=== PATIENT | female | born 1975 | race Caucasian/White ===

== ENCOUNTER 2023-11-17 12:36 | Emergency (ER) | payer OTHER, SELFPAY ==
[2023-11-17 12:42] VITALS: BP 165/91
[2023-11-17 14:08] LABS: Hematocrit 36.4 % (37.0-47.0); Hemoglobin 11.8 g/dL (12.0-16.0); Mean Corp Hgb Conc. 32.4 g/dL (33.0-37.0); Mean Corpuscular Hgb 26.8 pg (27.0-31.0); Mean Corpuscular Volume 82.7 fL (81.0-99.0); Mean Platelet Volume 9.7 fL (7.4-10.4); Platelet Count 365 10^3/uL (130-400); Red Cell Dist. Width 13.5 % (11.5-14.5); White Blood Cell Count 9.1 10^3/uL (4.8-10.8)
[2023-11-17 14:19] LABS: HCG, Serum Qualitative Screen Negative
[2023-11-17 14:23] LABS: Blood Urea Nitrogen 10 mg/dl (7-17); Calcium 9.1 mg/dl (8.4-10.2); Carbon Dioxide 26 mmol/L (22-30); Chloride 106 mmol/L (98-107); Glucose 125 mg/dl (70-99); Potassium 4.1 mmol/L (3.5-5.1); Sodium 137 mmol/L (135-145); eGFR > 60.00
--- NOTE | 2023-11-17 15:10 | ED.GENMED ---
History of Present Illness
General
Chief Complaint: Vaginal Bleeding
Time Seen by Provider: 11/17/23 13:22
Travel History
Have you had any contact with someone who has COVID-19?: No
Do you have any symptoms of coronavirus? Fever > 100 degrees, chills, cough, shortness of breath, sore throat, loss of taste or smell, muscle aches, or headache?: No
History of Present Illness
History of Present Illness:
48-year-old female with history of hypertension presents to the emergency department for evaluation of heavy vaginal bleeding for the past 10 days. She states for more than 1 year she has had heavy menstrual periods and took intermittent cycles of
norethindrone at the discretion of her SNOW PLOW OPERATOR to limit bleeding. She states she was advised to discontinue this recently by her SNOW PLOW OPERATOR but she is not certain why. Over the past 10 days has been having intermittent heavy bleeding, has changed her pad as
often as 4 times hourly as little as once a day over the past 10 days. Denies any abdominal pain, pelvic pain, chest pain, or shortness of breath. She does not take any anticoagulants or antiplatelets
Past History
Past History
ED Past Medical History: Psychiatric
ED Past Surgical History: Cholecystectomy and Gynecological (Tubal ligation)
Review of Systems
Review of Systems
Allergies reviewed?: Yes
All Other Systems: ROS reviewed and negative except as documented in HPI and ROS
Phy Exam
Physical Exam
Physical Exam:
GEN: Well appearing, NAD, WDWN
HEENT: Oral mucosa moist, no scleral icterus
Cardiac: Regular rate
Lung: No respiratory distress, no tachypnea
Abdomen: Soft, nontender
MSK: No gross deformity or injuries
Skin: Good color, no pallor or jaundice, no rashes
Neuro: AO x3, moves all extremities freely
Psych: Calm, cooperative
Course
Orders/Labs/Results
Orders:
Orders
11/17/23 13:43
Test Result ONCE
11/17/23 14:01
Basic Metabolic Panel Urgent
Complete Blood Count/No Diff Urgent
HCG, Serum Qualitative Screen Urgent
Abnormal Lab Results
11/17/23
14:01
Hgb 11.8 L g/dL
(12.0-16.0)
Hct 36.4 L %
(37.0-47.0)
MCH 26.8 L pg
(27.0-31.0)
MCHC 32.4 L g/dL
(33.0-37.0)
Glucose 125 H mg/dl
(70-99)
11/17/23 14:01
11/17/23 14:01
Vital Signs
Initial and Last Documented VS:
Initial Vital Signs
Temp Pulse Resp BP Pulse Ox
98.1 F 89 20 165/91 99
11/17/23 12:42 11/17/23 12:42 11/17/23 12:42 11/17/23 12:42 11/17/23 12:42
Last Documented Vital Signs
Temp Pulse Resp BP Pulse Ox
98.1 F 83 18 136/56 99
11/17/23 12:42 11/17/23 15:30 11/17/23 15:30 11/17/23 15:30 11/17/23 15:30
MDM/Problems Addressed
MDM/Problems Addressed:
Patient's labs are reassuring. Given that this been a chronic ongoing issue for at least 1 year I do not see any indication for imaging at this juncture. Her breakthrough bleeding is likely in the basis of discontinued hormonal therapy. Given the
volume of her bleeding will recommend a course of norethindrone but she is advised she may have breakthrough bleeding or stands. She is advised to contact her SNOW PLOW OPERATOR office first thing Monday morning for follow-up
*Critical Care Note
Total Time (30-74mins, 75-104mins- exclusive of procedures): Not Applicable
ED Attending Note
-
Portions of this chart may have been created with voice recognition software.� Occasional wrong word or��sound alike� substitutions may have occurred due to the inherent limitations of voice recognition software.
Discharge Plan
Departure
Patient Disposition: Home (Routine Discharge)
Date of Disposition: 11/17/23
Time of Disposition: 15:10
Patient with high blood pressure during this ER visit?: No
Discharge Problem:
DUB (dysfunctional uterine bleeding)
Instructions: Heavy Periods (DC)
Prescriptions:
New
norethindrone acetate 5 mg tablet
10 mg PO DAILY 10 Days Qty: 20 0RF
No Action
lithium carbonate 300 mg Capsule
300 mg PO DAILY
lithium carbonate 300 mg Capsule
600 mg PO HS
lorazepam 1 mg Tablet
1 mg PO BID
quetiapine 200 mg Tablet Extended Release 24 Hr
200 mg PO QPM
metoprolol succinate 50 mg Tablet Extended Release 24 Hr
50 mg PO DAILY
cyclobenzaprine 10 mg Tablet
10 mg PO HS PRN (Reason: pain)
fluticasone propionate 50 mcg/actuation [place],Suspension
1 spray INTRANASAL DAILY
Referrals:
Luis Antonio Funez DO [Non-Admitting Privileges] - Call in 1-3 days for appt
Lacey Martini CRNP [Family Provider] -
Interventions
Interventions:
*Risk Screen - Suicide Last Done: 11/17/23 12:42
*General Assessment Last Done: 11/17/23 12:42
*Neglect/Abuse Screening Last Done: 11/17/23 14:15
ED- Fall Risk Assessment Last Done: 11/17/23 14:15
*ED COVID-19 Vaccine History Last Done: 11/17/23 14:15
*Nursing Disposition Last Done: 11/17/23 15:30
ED-Female Genitourinary Assessment Last Done: 11/17/23 14:15
Discharge Date and Time
Discharge Date/Time: 11/17/23 15:30
[2023-11-17 15:30] VITALS: BP 136/56
== END 2023-11-17 15:30 | disposition home or self-care (01) ==
LOC: EMR 12:36
PROVIDERS: Physician Assistant; EMERGENCY PHYSICIAN Emergency Medicine; FAMILY PHYSICIAN Nurse Practitioner
DX: N93.8 Other specified abnormal uterine and vaginal bleeding (principal); Z98.51 Tubal ligation status
CPT/HCPCS: 99283; 80048; 84703; 85027

== ENCOUNTER 2023-12-03 19:31 | Emergency (ER) | payer OTHER, SELFPAY ==
[2023-12-03 19:31] VITALS: BMI 46.4
[2023-12-03 19:38] VITALS: BP 187/122
--- NOTE | 2023-12-03 21:00 | ED.GENMED ---
History of Present Illness
General
Chief Complaint: Flank Pain
Source: patient
Exam Limitations: none
Time Seen by Provider: 12/03/23 20:20
Nursing documentation reviewed up to this point in time: agreed with
Travel History
Have you had any contact with someone who has COVID-19?: No
Do you have any symptoms of coronavirus? Fever > 100 degrees, chills, cough, shortness of breath, sore throat, loss of taste or smell, muscle aches, or headache?: No
History of Present Illness
History of Present Illness:
Patient is a 48-year-old female who presents to the ER complaining right flank pain radiating to her abdomen. She has had this pain for at least a year.
She reports however she has a history of kidney stones and this does feel similar. She reports infectious saw Dr. Og recently who ordered a CAT scan which is scheduled for Monday. She had an outpatient ultrasound of her bladder in
August.
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
She does report she has had some blood in her urine she noticed this when wiping. She just started control today and does not have her period currently.
Past History
Past History
ED Past Medical History: Psychiatric
ED Past Surgical History: Cholecystectomy and Gynecological (Tubal ligation)
Review of Systems
Review of Systems
Allergies reviewed?: Yes
All Other Systems: ROS reviewed and negative except as documented in HPI and ROS
Constitutional: Reports no symptoms; Denies fever, fatigue or chills
EENT: Reports no symptoms
Respiratory: Reports no symptoms
Cardiac: Reports no symptoms
ABD/GI: Reports other (right flank pain radiating to right abdomen ); Denies nausea, vomiting or diarrhea
: Reports flank pain (right flank pain ) and other (blood on toilet paper w/ wiping urination )
Musculoskeletal: Reports no symptoms
Skin: Reports no symptoms
Neurological: Reports no symptoms
Psychiatric: Reports no symptoms
Phy Exam
General Physical Exam
General Presentation: no apparent distress
General age: appears stated age
General Skin: warm and dry
General Habitus: normal
General Mental: alert
General Hydration: appears well hydrated
Gastrointestinal Exam
Gastrointestinal Exam: non tender and soft
Neurological Exam
Neurological Exam: alert and oriented x3
Musculoskeletal Exam
Musculoskeletal Exam: full ROM
Skin Exam
Skin Exam: normal color and warm/dry
Psychiatric Exam
Psychiatric Exam: normal mood/affect
Course
Orders/Labs/Results
Orders:
Orders
12/03/23 21:02
IV Insert/Care/Rem.- Treatment PRN
0.9% Sodium Chloride 1000 ml [Nss] 1,000 ml IV BOLUS
12/03/23 21:03
CT Abd/pel Without Iv Or Oral Urgent
Comment:
Reason For Exam: right flank pain
Ketorolac [Toradol] 15 mg IV NOW STA
Test Result ONCE
12/03/23 21:12
Complete Blood Count/With Diff Urgent
Comprehensive Metabolic Panel Urgent
HCG, Serum Qualitative Screen Urgent
Urinalysis Reflex To Culture Urgent
Date Specimen was Collected: 12/03/23
Time Specimen was Collected: 21:05
Urine Microscopic Reflex Cult Urgent
12/03/23 23:22
Vital Signs- Treatment ONCE
Frequency: Once
Abnormal Lab Results
12/03/23
21:12
WBC 11.7 H 10^3/uL
(4.8-10.8)
Hct 36.2 L %
(37.0-47.0)
Abs Immat Gran (auto) 0.1 H 10^3/uL
(0-0.05)
Absolute Neuts (auto) 8.2 H 10^3/uL
(1.4-6.5)
Immature Gran % 0.8 H %
(0-0.5)
Chloride 109 H mmol/L
(98-107)
Carbon Dioxide 21 L mmol/L
(22-30)
Glucose 104 H mg/dl
(70-99)
Ur Occult Blood Reflex 1+ A
(Negative)
Urine RBC 3-6 A /HPF
(0-2)
12/03/23 21:12
12/03/23 21:12
Vital Signs
Initial and Last Documented VS:
Initial Vital Signs
Temp Pulse Resp BP Pulse Ox
98.3 F 92 24 187/122 100
12/03/23 19:38 12/03/23 19:38 12/03/23 19:38 12/03/23 19:38 12/03/23 19:38
Last Documented Vital Signs
Temp Pulse Resp BP Pulse Ox
98.3 F 92 24 187/122 100
12/03/23 19:38 12/03/23 19:38 12/03/23 19:38 12/03/23 19:38 12/03/23 19:38
Cuff Setter Overlock consulted with Physician
Cuff Setter Overlock consulted with physician?: Yes
Name of Physician Consulted: khanh
MDM/Problems Addressed
Differential Diagnosis Includes:
Not limited to renal colic muscle pain chronic pain
MDM/Problems Addressed:
48 old female presented to the ER complaining of right flank pain. She has had pain similar to this for at least a year but was concerned about kidney stone. She has since seen Dr. Og of urology. She reports she had an ultrasound which showed
a lesion in her bladder was recommended to have a CAT scan by urology. CAT scan was done today with no acute findings. No obstructive uropathy there is right nephrolithiasis. patient nontender on exam was monitored here and is asymptomatic.
Patient denies any fevers and is afebrile here white count minimally elevated 11.7 normal hemoglobin, normal chemistries no acute evidence of UTI on urinalysis. abd soft non tender , no cva tenderness
Will DC back to follow-up with urology for findings on ultrasound, questionable bladder mass though no acute findings on CAT scan. Patient is nontoxic no pain presently
Discussed the importance of close outpatient follow-up further evaluate
*Radiology
Radiology exam reviewed: radiology read reviewed
*Pulse Oximetry
Patient hypoxic: no
*Critical Care Note
Total Time (30-74mins, 75-104mins- exclusive of procedures): Not Applicable
Data Reviewed
Review of Other/Old Records Reveals: Radiology Studies (previous bladder US )
ED Attending Note
-
Portions of this chart may have been created with voice recognition software.� Occasional wrong word or��sound alike� substitutions may have occurred due to the inherent limitations of voice recognition software.
Discharge Plan
Departure
Patient Disposition: Home (Routine Discharge)
Date of Disposition: 12/04/23
Time of Disposition: 00:13
Patient with high blood pressure during this ER visit?: Yes
Covid-19: Not Applicable
Discharge Problem:
Flank pain
Instructions: Flank Pain (DC), BLOOD PRESSURE
Prescriptions:
No Action
lithium carbonate 300 mg Capsule
300 mg PO DAILY
lithium carbonate 300 mg Capsule
600 mg PO HS
lorazepam 1 mg Tablet
1 mg PO BID
quetiapine 200 mg Tablet Extended Release 24 Hr
200 mg PO QPM
metoprolol succinate 50 mg Tablet Extended Release 24 Hr
50 mg PO DAILY
cyclobenzaprine 10 mg Tablet
10 mg PO HS PRN (Reason: pain)
fluticasone propionate 50 mcg/actuation [place],Suspension
1 spray INTRANASAL DAILY
norethindrone acetate 5 mg tablet
10 mg PO DAILY 10 Days Qty: 20 0RF
Referrals:
Tripp Og MD [Active] -
Lacey Martini CRNP [Family Provider] -
Activity Restrictions/Additional Instructions:
Follow-up with urology as discussed in the next several days for reevaluation of symptoms. Return if any worsening of symptoms
Interventions
Interventions:
*Risk Screen - Suicide Last Done: 12/03/23 19:38
*Neglect/Abuse Screening Last Done: 12/03/23 19:38
ED- Fall Risk Assessment Last Done: 12/03/23 21:15
DZ-Kiedzs-Jzazjvuhyz Assessment Last Done: 12/03/23 21:15
ED-Female Genitourinary Assessment Last Done: 12/03/23 21:15
[2023-12-03] MEDS: TORADOL 15 MG IV (21:05)
[2023-12-03] MEDS: NSS 1000 IV (21:06)
[2023-12-03 21:20] LABS: % Basophils 0.7 % (0-2); % Eosinophils 0.8 % (0-6); % Immature Granulocytes 0.8 % (0-0.5); % Lymphocytes 23.4 % (20.5-51.1); % Monocytes 4.6 % (1.7-9.3); % Neutrophils 69.7 % (42.2-75.2); Absolute Basophils 0.1 10^3/uL (0-0.2); Absolute Eosinophils 0.1 10^3/uL (0-0.7); Absolute Immature Granulocytes 0.1 10^3/uL (0-0.05); Absolute Lymphocytes 2.7 10^3/uL (1.2-3.4); Absolute Monocytes 0.5 10^3/uL (0.1-0.6); Absolute Neutrophils 8.2 10^3/uL (1.4-6.5); Hematocrit 36.2 % (37.0-47.0); Mean Corp Hgb Conc. 33.1 g/dL (33.0-37.0); Mean Corpuscular Volume 81.5 fL (81.0-99.0); Mean Platelet Volume 9.6 fL (7.4-10.4); Nucleated Red Blood Cells % 0 %; Platelet Count 371 10^3/uL (130-400); Red Blood Cell Count 4.44 10^6/uL (4.20-5.40); Red Cell Dist. Width 13.4 % (11.5-14.5); White Blood Cell Count 11.7 10^3/uL (4.8-10.8)
[2023-12-03 21:22] LABS: Urine Albumin Negative (Neg - Trace); Urine Bilirubin Negative (Negative); Urine Character Clear (Clear); Urine Color Straw; Urine Glucose Negative (Negative); Urine Ketone Negative (Negative); Urine Leukocyte Negative (Negative); Urine Nitrite Negative (Negative); Urine Occult Blood 1+ (Negative); Urine Urobilinogen Negative (Neg - 1+); Urine pH 6.5 (5.0-9.0)
[2023-12-03 21:30] LABS: HCG, Serum Qualitative Screen Negative
[2023-12-03 21:31] LABS: Urine White Cell None Seen /HPF (0-5)
[2023-12-03 21:33] LABS: ALT (SGPT) 32 U/L (0-35); AST (SGOT) 31 U/L (14-36); Albumin 4.5 g/dl (3.5-5.0); Alkaline Phosphatase 95 U/L (38-126); Blood Urea Nitrogen 8 mg/dl (7-17); Calcium 9.6 mg/dl (8.4-10.2); Carbon Dioxide 21 mmol/L (22-30); Chloride 109 mmol/L (98-107); Estimated Creatinine Clearance > 125 ml/min; Glucose 104 mg/dl (70-99); Potassium 4.4 mmol/L (3.5-5.1); Sodium 138 mmol/L (135-145); Total Bilirubin 0.3 mg/dl (0.2-1.3); Total Protein 7.4 g/dl (6.3-8.2); eGFR > 60.00
[2023-12-03 23:48] VITALS: BP 154/119
[2023-12-04] VITALS: BP 144/82
== END 2023-12-04 00:46 | disposition home or self-care (01) ==
LOC: EMR 19:31
PROVIDERS: Nurse Practitioner; EMERGENCY PHYSICIAN Emergency Medicine; FAMILY PHYSICIAN Nurse Practitioner
DX: R10.9 Unspecified abdominal pain (principal); Z87.442 Personal history of urinary calculi; Z90.49 Acquired absence of other specified parts of digestive tract; Z98.51 Tubal ligation status
CPT/HCPCS: 99284; 96374; 96361; 74176; 80053; 81003; 81015; 84703; 85025

== ENCOUNTER 2023-12-07 06:33 | Day surgery (SDC) | payer OTHER, SELFPAY ==
[2023-12-07] VITALS (7 sets, daily range): BP systolic 128–147; BP diastolic 64–99; BMI 48.2
[2023-12-07] MEDS: NORMOSOL-R 1000 IV (11:06)
[2023-12-07] MEDS: Pyridium 200 MG PO (15:39)
[2023-12-13 15:31] LABS: Stone Analysis Mass 17 mg
== END 2023-12-07 16:30 | disposition home or self-care (01) ==
LOC: SDS 06:33
PROVIDERS: ATTENDING PHYSICIAN Urology
DX: N20.0 Calculus of kidney (principal)
CPT/HCPCS: 52356; 74018; 76000; 82365; A4300; C1758; C1769; C1894; C2617

== ENCOUNTER → 2024-02-05 11:53 | Outpatient (REF) | payer OTHER, SELFPAY | LOC: RAD 11:53 | PROVIDERS: ATTENDING PHYSICIAN Nurse Practitioner | DX: S16.1XXS Strain of muscle, fascia and tendon at neck level, sequela (principal) | CPT/HCPCS: 72050 ==

== ENCOUNTER → 2024-06-11 08:09 | Outpatient (REF) | payer OTHER, SELFPAY | LOC: HWRAD 08:09 | PROVIDERS: ATTENDING PHYSICIAN Urology; FAMILY PHYSICIAN Nurse Practitioner | DX: N32.89 Other specified disorders of bladder (principal) | CPT/HCPCS: 74176 ==

== ENCOUNTER → 2024-06-14 15:59 | Outpatient (REF) | payer OTHER, SELFPAY | LOC: HWRAD 15:59 | PROVIDERS: ATTENDING PHYSICIAN Nurse Practitioner | DX: J18.9 Pneumonia, unspecified organism (principal) | CPT/HCPCS: 71046 ==

== ENCOUNTER → 2024-07-12 07:01 | Outpatient (REF) | payer OTHER, SELFPAY | LOC: RAD 07:01 | PROVIDERS: ATTENDING PHYSICIAN Internal Medicine; FAMILY PHYSICIAN Nurse Practitioner | DX: K75.81 Nonalcoholic steatohepatitis (NASH) (principal) | CPT/HCPCS: 76700 ==

== ENCOUNTER → 2024-09-23 14:30 | Outpatient (REF) | payer OTHER, SELFPAY | LOC: HWRAD 14:30 | PROVIDERS: ATTENDING PHYSICIAN Physician Assistant; FAMILY PHYSICIAN Nurse Practitioner | DX: R22.1 Localized swelling, mass and lump, neck (principal) | CPT/HCPCS: 76536 ==

== ENCOUNTER → 2024-11-27 14:19 | Outpatient (REF) | payer MEDICARE, OTHER, SELFPAY | LOC: HWRAD 14:19 | PROVIDERS: ATTENDING PHYSICIAN Nurse Practitioner | DX: M79.645 Pain in left finger(s) (principal) | CPT/HCPCS: 73110; 73130 ==

== ENCOUNTER → 2024-12-10 12:49 | Outpatient (REF) | payer MEDICARE, OTHER, SELFPAY | LOC: HWRAD 12:49 | PROVIDERS: ATTENDING PHYSICIAN Nurse Practitioner | DX: M25.561 Pain in right knee (principal) | CPT/HCPCS: 73564 ==

== ENCOUNTER 2025-01-02 07:46 | Emergency (ER) | payer MEDICARE, SELFPAY ==
[2025-01-02 07:54] VITALS: BP 181/92
[2025-01-02 08:00] VITALS: BMI 42.9
[2025-01-02] MEDS: BENADRYL 25 MG IV (08:38)
[2025-01-02] MEDS: NSS 1000 IV (08:39)
[2025-01-02] MEDS: REGLAN 10 MG IV (08:39)
[2025-01-02 08:44] LABS: % Basophils 0.5 % (0-2); % Eosinophils 0.6 % (0-6); % Immature Granulocytes 0.5 % (0-0.5); % Lymphocytes 10.8 % (20.5-51.1); % Monocytes 4.1 % (1.7-9.3); % Neutrophils 83.5 % (42.2-75.2); Absolute Basophils 0.1 10^3/uL (0-0.2); Absolute Eosinophils 0.1 10^3/uL (0-0.7); Absolute Immature Granulocytes 0.1 10^3/uL (0-0.05); Absolute Lymphocytes 1.6 10^3/uL (1.2-3.4); Absolute Monocytes 0.6 10^3/uL (0.1-0.6); Absolute Neutrophils 12.6 10^3/uL (1.4-6.5); Hematocrit 36.5 % (37.0-47.0); Hemoglobin 12.2 g/dL (12.0-16.0); Mean Corp Hgb Conc. 33.4 g/dL (33.0-37.0); Mean Corpuscular Hgb 26.7 pg (27.0-31.0); Mean Corpuscular Volume 79.9 fL (81.0-99.0); Mean Platelet Volume 9.2 fL (7.4-10.4); Nucleated Red Blood Cells % 0 %; Platelet Count 444 10^3/uL (130-400); Red Blood Cell Count 4.57 10^6/uL (4.20-5.40); Red Cell Dist. Width 13.2 % (11.5-14.5); White Blood Cell Count 15.1 10^3/uL (4.8-10.8)
--- NOTE | 2025-01-02 08:47 | ED.GENMED ---
History of Present Illness
General
Chief Complaint: Cold/Flu/URI Symptoms
Source: patient
Exam Limitations: none
Time Seen by Provider: 01/02/25 08:09
History of Present Illness
History of Present Illness:
49-year-old female presents with nausea vomiting and diarrhea over the past 3 days. She is having trouble sleeping because of this. Her lithium was recently increased from 300 mg twice a day to 450 mg twice a day. She denies fevers or abdominal
pain. Prior abdominal surgical history of cholecystectomy. She states she is having trouble sleeping. She feels she is getting depressed because of her lack of sleep and illness. No other complaints at this time
Past History
Past History
ED Past Medical History: Psychiatric
ED Past Surgical History: Cholecystectomy and Gynecological (Tubal ligation)
Phy Exam
Physical Exam
Physical Exam:
General: Well-appearing anxious female no acute respiratory distress
HEENT: Normocephalic atraumatic
Heart: Regular rate and rhythm
Lungs: Clear no wheeze
Abdomen is soft nontender nondistended no guarding or rebound
Extremities: No cyanosis or edema
Skin: Warm no rash
Course
Orders/Labs/Results
Orders:
Orders
01/02/25 08:17
0.9% Sodium Chloride 1000 ml [Nss] 1,000 ml IV BOLUS
Metoclopramide [Reglan] 10 mg IV NOW STA
01/02/25 08:18
Test Result ONCE
01/02/25 08:19
Diphenhydramine [Benadryl] 25 mg IV NOW STA
01/02/25 08:36
Complete Blood Count/With Diff Urgent
Comprehensive Metabolic Panel Urgent
HCG, Serum Qualitative Screen Urgent
Lipase Urgent
Burchard Urgent
01/02/25 09:56
Famotidine [Pepcid] 20 mg IV NOW STA
Abnormal Lab Results
01/02/25
08:36
WBC 15.1 H 10^3/uL
(4.8-10.8)
Hct 36.5 L %
(37.0-47.0)
MCV 79.9 L fL
(81.0-99.0)
MCH 26.7 L pg
(27.0-31.0)
Plt Count 444 H 10^3/uL
(130-400)
Abs Immat Gran (auto) 0.1 H 10^3/uL
(0-0.05)
Absolute Neuts (auto) 12.6 H 10^3/uL
(1.4-6.5)
Neutrophils % 83.5 H %
(42.2-75.2)
Lymphocytes % 10.8 L %
(20.5-51.1)
Glucose 137 H mg/dl
(70-99)
AST 38 H U/L
(14-36)
Burchard 1.3 H mmol/L
(0.6-1.2)
01/02/25 08:36
01/02/25 08:36
Vital Signs
Initial and Last Documented VS:
Initial Vital Signs
Temp Pulse Resp BP Pulse Ox
99.0 F 90 16 181/92 98
01/02/25 07:54 01/02/25 07:54 01/02/25 07:54 01/02/25 07:54 01/02/25 07:54
Last Documented Vital Signs
Temp Pulse Resp BP Pulse Ox
99.0 F 76 16 134/93 99
01/02/25 07:54 01/02/25 09:55 01/02/25 09:55 01/02/25 09:55 01/02/25 08:49
MDM/Problems Addressed
Differential Diagnosis Includes:
Patient with nausea vomiting diarrhea. She also feels anxious and depressed because of the symptoms. Recent lithium adjustment. Will check lithium levels. Check basic labs hydrate give Reglan and Benadryl.
Abdomen exam benign consider CT but no indication to at this time
*Critical Care Note
Total Time (30-74mins, 75-104mins- exclusive of procedures): Not Applicable
Update Note
Update Note:
Labs reviewed subtle leukocytosis patient states he started steroids yesterday. Abdomen exam benign. Now tolerating ice chips. Burchard level 1.3. Vies she follow-up with her psychiatry team for further recommendations regarding her lithium
dosing. Will prescribe nausea medicine and discharge.
ED Attending Note
-
Portions of this chart may have been created with voice recognition software.� Occasional wrong word or��sound alike� substitutions may have occurred due to the inherent limitations of voice recognition software.
Discharge Plan
Departure
Patient Disposition: Home (Routine Discharge)
Date of Disposition: 01/02/25
Time of Disposition: 10:53
Patient with high blood pressure during this ER visit?: No
Discharge Problem:
Vomiting
Instructions: Viral Syndrome (DC)
Prescriptions:
New
ondansetron 4 mg tablet,disintegrating
4 mg PO Q8H PRN (Reason: nausea and vomiting) Qty: 10 0RF
No Action
lithium carbonate 300 mg Capsule
300 mg PO DAILY
lithium carbonate 300 mg Capsule
600 mg PO HS
lorazepam 1 mg Tablet
1 mg PO TID
quetiapine 200 mg Tablet Extended Release 24 Hr
200 mg PO BID
cyclobenzaprine 10 mg Tablet
10 mg PO HS PRN (Reason: pain)
losartan 25 mg Tablet
25 mg PO DAILY
tranexamic acid 650 mg Tablet
650 mg PO TID
fluticasone propionate 50 mcg/actuation [place],Suspension
1 spray INTRANASAL DAILY
Elicia Back and Body 500-32.5 mg Tablet
1 tab PO PRN PRN (Reason: pain)
amoxicillin
1 tab PO BID
Referrals:
Verdolini,Lacey Marcella, [employer] [Family Provider] -
Activity Restrictions/Additional Instructions:
Use Prilosec [id number]. Use Zofran if needed for nausea. Start with clear liquids and advance to a bland diet as tolerated. Please follow-up with your psychiatry team for recommendations regarding your lithium dosing.
Interventions
Interventions:
*Risk Screen - Suicide Last Done: 01/02/25 07:54
*General Assessment Last Done: 01/02/25 08:08
*Neglect/Abuse Screening Last Done: 01/02/25 07:54
*ED COVID-19 Vaccine History Last Done: 01/02/25 07:59
ED- Pulmonary Assessment Last Done: 01/02/25 08:10
Discharge Date and Time
Print Language: [place]
[2025-01-02 08:49] VITALS: BP 132/85
[2025-01-02 08:51] LABS: HCG, Serum Qualitative Screen Negative
[2025-01-02 08:57] LABS: ALT (SGPT) 35 U/L (0-35); AST (SGOT) 38 U/L (14-36); Albumin 4.2 g/dl (3.5-5.0); Alkaline Phosphatase 117 U/L (38-126); Blood Urea Nitrogen 11 mg/dl (7-17); Calcium 9.8 mg/dl (8.4-10.2); Carbon Dioxide 26 mmol/L (22-30); Chloride 99 mmol/L (98-107); Estimated Creatinine Clearance 123 ml/min; Glucose 137 mg/dl (70-99); Lipase 137 U/L (23-300); Lithium 1.3 mmol/L (0.6-1.2); Potassium 3.6 mmol/L (3.5-5.1); Sodium 137 mmol/L (135-145); Total Bilirubin 0.8 mg/dl (0.2-1.3); eGFR > 60.00
[2025-01-02 09:55] VITALS: BP 134/93
[2025-01-02] MEDS: PEPCID 20 MG IV (10:02)
== END 2025-01-02 11:04 | disposition home or self-care (01) ==
LOC: EMR 07:46
PROVIDERS: Physician Assistant; EMERGENCY PHYSICIAN Student in an Organized Health Care Education/Training Program; FAMILY PHYSICIAN Nurse Practitioner
DX: R11.2 Nausea with vomiting, unspecified (principal); R19.7 Diarrhea, unspecified; D72.829 Elevated white blood cell count, unspecified; Z90.49 Acquired absence of other specified parts of digestive tract; Z98.51 Tubal ligation status
CPT/HCPCS: 99283; 96374; 96375; 80053; 80178; 83690; 84703; 85025

== ENCOUNTER → 2025-01-08 17:03 | Outpatient (REF) | payer MEDICARE, SELFPAY | LOC: RAD 17:03 | PROVIDERS: ATTENDING PHYSICIAN Hospitalist | DX: R10.30 Lower abdominal pain, unspecified (principal) | CPT/HCPCS: 74177; Q9967 ==

== ENCOUNTER → 2025-01-10 15:19 | Outpatient (REF) | payer MEDICARE, SELFPAY | LOC: HWRCS 15:19 | PROVIDERS: ATTENDING PHYSICIAN Hospitalist | DX: R01.1 Cardiac murmur, unspecified (principal) | CPT/HCPCS: 93306 ==

== ENCOUNTER → 2025-02-24 11:30 | Outpatient (REF) | payer MEDICARE, OTHER, SELFPAY | LOC: HWRAD 11:30 | PROVIDERS: ATTENDING PHYSICIAN Hospitalist | DX: M25.562 Pain in left knee (principal); M25.561 Pain in right knee | CPT/HCPCS: 73564 ==

== ENCOUNTER 2025-03-16 18:02 | Emergency (ER) | payer MEDICARE, OTHER, SELFPAY ==
[2025-03-16 18:10] VITALS: BP 151/70
[2025-03-16 21:42] VITALS: BMI 43.9
--- NOTE | 2025-03-16 22:10 | ED.GENMED ---
History of Present Illness
General
Chief Complaint: Cast Check
Source: patient and spouse
Time Seen by Provider: 03/16/25 21:54
History of Present Illness
History of Present Illness:
This patient is a 49-year-old female who suffered a fracture to the knee on February 22. She would initially was placed in a brace but was complaining that the brace was not staying in place and therefore was transition to a cast. This cast was
creating irritation at the posterior aspect of her lower calf/Achilles area and it was therefore changed to a different cast. She began complaining today that she again felt like the posterior Achilles area is sore because of the cast rubbing
against it. She called her [facility] doctor and was referred to the emergency department for reportedly cast removal and replacement of the knee brace. She denies redness, warmth, fever. She says intermittently her foot feels kind of numb but not
currently.
Past History
Past History
ED Past Medical History: Psychiatric
ED Past Surgical History: Cholecystectomy and Gynecological (Tubal ligation)
Social History
Tobacco: Non-smoker
Alcohol: Occasional
Drug: None
Personal:
Living: with family
Phy Exam
Physical Exam
Physical Exam:
GENERAL: Alert , in no apparent distress
EYE: pupils equal and reactive
NECK: Supple, no significant adenopathy.
ENT: o/p clr, mmm.
CARDIAC: Regular rate and rhythm .
LUNGS: Clear breath sounds bilaterally, no acute respiratory distress, no wheezes/rales/rhonchi
ABDOMEN: Soft, without focal tenderness, no r/g, no cvat
NEUROLOGICAL: Alert and oriented, no focal neuro deficits
SKIN: Warm and dry, skin intact.
MUSCULOSKELETAL: No edema, well perfused. 2+ dp pulses bilat, no cyanosis/pallor. There is mild irritation of distal achilles area, no break in skin, no fluctuance/crepitus/open wound, etc.
PSYCH: Normal and appropriate interaction.
Course
Vital Signs
Initial and Last Documented VS:
Initial Vital Signs
Temp Pulse Resp BP Pulse Ox
98.3 F 87 16 151/70 98
03/16/25 18:10 03/16/25 18:10 03/16/25 18:10 03/16/25 18:10 03/16/25 18:10
Last Documented Vital Signs
Temp Pulse Resp BP Pulse Ox
98.3 F 77 18 105/62 100
03/16/25 18:10 03/16/25 23:26 03/16/25 23:26 03/16/25 23:26 03/16/25 23:26
*Pulse Oximetry
SaO2: 98
Oxygen Mode of Delivery: Room air
*Critical Care Note
Total Time (30-74mins, 75-104mins- exclusive of procedures): Not Applicable
Update Note
Update Note:
Patient presents to the Emergency Department with ___posterior leg irritation from cast
Number and Complexity of Problems Addressed at the Encounter
� Chronic conditions affecting care:
� Acute Exacerbation and/or Progression of Chronic Illness:
� Differential Diagnosis includes: But not limited to compression from cast, skin irritation, etc. etc.
Amount and/or Complexity of Data to be Reviewed and Analyzed
� I performed an independent evaluation of and my interpretation is:
EKG:
CT:
Xrays:
Laboratory Studies:
Other:
� Review of other/old records reveals:
� Clinical information was obtained by an independent historian: who is bedside
� Prescriptions/Medications Considered but not given:
� Further testing considered but not performed:
Risk of Complications and/or Morbidity or Mortality of Patient Management
� Social determinants of health affecting care:
� Discussion with other providers (PCP, Hospitalists, Consultants, etc):
� Escalation of care including admission/observation vs risk of discharge considered: Text sent to [facility] doctor on-call, Dr. Michael to confirm that patient's expected plan is consistent with his recommendations.
Discussed with Dr. Michael he did not recommend cast removal nor did he speak to patient before her arrival here. Patient gave me the number that she called, I left a message awaiting callback from that physician. In the interim, in discussion
with Dr. Michael, we mutually decided that the best option is to not remove the cast tonight, but rather provide further padding and have her see orthopedics in the morning. Case discussed with patient and she is agreeable to this plan. There
are no indications of vascular compromise, compartment syndrome, cellulitis, or other worries. RN here will be applying cushioning and support in meantime
ED Attending Note
-
Portions of this chart may have been created with voice recognition software.� Occasional wrong word or��sound alike� substitutions may have occurred due to the inherent limitations of voice recognition software.
Discharge Plan
Departure
Patient Disposition: Home (Routine Discharge)
Date of Disposition: 03/16/25
Time of Disposition: 23:09
Patient with high blood pressure during this ER visit?: Yes
Condition: Good
Discharge Problem:
Encounter for cast check
Instructions: Cast Care, BLOOD PRESSURE
Prescriptions:
No Action
lithium carbonate 300 mg Capsule
300 mg PO DAILY
lithium carbonate 300 mg Capsule
600 mg PO HS
lorazepam 1 mg Tablet
1 mg PO TID
quetiapine 200 mg Tablet Extended Release 24 Hr
200 mg PO BID
cyclobenzaprine 10 mg Tablet
10 mg PO HS PRN (Reason: pain)
losartan 25 mg Tablet
25 mg PO DAILY
tranexamic acid 650 mg Tablet
650 mg PO TID
fluticasone propionate 50 mcg/actuation [place],Suspension
1 spray INTRANASAL DAILY
Elicia Back and Body 500-32.5 mg Tablet
1 tab PO PRN PRN (Reason: pain)
amoxicillin
1 tab PO BID
ondansetron 4 mg tablet,disintegrating
4 mg PO Q8H PRN (Reason: nausea and vomiting) Qty: 10 0RF
Referrals:
Robert Ann MD [Family Provider, Family Practice]
Activity Restrictions/Additional Instructions:
PLEASE CONTACT YOUR DOCTOR TOMORROW FOR FURTHER ADVISEMENT REGARDING YOUR CAST. TONIGHT YOU HAD FURTHER PROTECTION/CUSHIONING APPLIED.
Interventions
Interventions:
*Risk Screen - Suicide Last Done: 03/16/25 21:42
*General Assessment Last Done: 03/16/25 21:42
*Neglect/Abuse Screening Last Done: 03/16/25 21:42
*ED- Fall Risk Assessment Last Done: 03/16/25 21:42
*ED COVID-19 Vaccine History Last Done: 03/16/25 21:42
*Nursing Disposition Last Done: 03/16/25 23:28
ED-Peripheral Vascular Assessment Last Done: 03/16/25 21:51
ED-Skin Assessment Last Done: 03/16/25 21:51
Discharge Date and Time
Discharge Date/Time: 03/16/25 23:28
Print Language: MAURITIAN
[2025-03-16 23:26] VITALS: BP 105/62
== END 2025-03-16 23:28 | disposition home or self-care (01) ==
LOC: EMR 18:02
PROVIDERS: EMERGENCY PHYSICIAN Emergency Medicine; FAMILY PHYSICIAN Family Medicine
DX: Z46.89 Encounter for fitting and adjustment of other specified devices (principal); R03.0 Elevated blood-pressure reading, without diagnosis of hypertension
CPT/HCPCS: 99282

== ENCOUNTER 2025-07-17 12:20 | Emergency (ER) | payer MEDICARE, SELFPAY ==
[2025-07-17 12:21] VITALS: BP 145/79
--- NOTE | 2025-07-17 13:46 | ED.GENMED ---
History of Present Illness
General
Chief Complaint: Back Pain
Source: patient
Exam Limitations: none
Time Seen by Provider: 07/17/25 13:10
Nursing documentation reviewed up to this point in time: agreed with
History of Present Illness
History of Present Illness:
Patient is a 49-year-old female who presents to the emergency department for evaluation of right lower back pain X 4 days. Patient describes a dull pain in her right lower back which has been intermittent over the past 2 days. Pain is now
radiating into her right lower abdomen/inguinal region. Patient denies any associated fever, chills, anorexia. No nausea/vomiting, dysuria, or hematuria. No chest pain or shortness of breath. No numbness/tingling or weakness in lower
extremities. No bowel/bladder incontinence.
Symptoms seem exacerbated with certain positions and when riding in the car. She did use a heating pad yesterday which did provide some relief.
Patient states that she does have a history of kidney stones. No prior history of sciatica. No known inciting trauma or injury.
Past History
Past History
ED Past Medical History: Psychiatric
ED Past Surgical History: Cholecystectomy and Gynecological (Tubal ligation)
Social History
Tobacco: Non-smoker
Alcohol: Occasional
Drug: None
Personal:
Living: with family
Review of Systems
Review of Systems
Allergies reviewed?: Yes
All Other Systems: ROS reviewed and negative except as documented in HPI and ROS
Phy Exam
Physical Exam
Physical Exam:
Vitals: Hypertensive, otherwise vital signs stable. Afebrile
General: Patient is well appearing, no acute distress
Skin: Warm and dry, no rashes or lesions
Head: Normocephalic, atraumatic
Eyes: Sclera nonicteric.
Throat: Protecting airway
Neck: Normal ROM, no cervical spine tenderness, no meningismus
Cardiac: Regular rate and rhythm, no murmurs.
Pulm: Normal respiratory effort. Lungs clear bilaterally
Abdomen: Abdomen soft. Reproducible tenderness in right flank and right lower quadrant. Some tenderness in right pelvic region. No rebound tenderness or guarding.
Extremities: No evidence of cyanosis or edema. Distal pulses intact
Neuro: AAOx3. Grossly intact.
Psychiatric: Normal affect.
Course
Orders/Labs/Results
Orders:
Orders
07/17/25 13:33
CT Abd/pelvis W Iv Cont Urgent
Comment:
Reason For Exam: Right flank pain/ right abdominal pain
0.9% Sodium Chloride 1000 ml [Nss] 1,000 ml IV BOLUS
Ketorolac [Toradol] 15 mg IV NOW STA
07/17/25 13:36
Test Result ONCE
07/17/25 13:44
Urinalysis Reflex To Culture Urgent
Date Specimen was Collected: 07/17/25
Time Specimen was Collected: 13:36
Urine Microscopic Reflex Cult Urgent
Urine Culture Urgent
AL Source: U
Specimen Description:
Date Specimen was Collected: 07/17/25
Time Specimen was Collected: 13:36
07/17/25 14:14
Complete Blood Count/With Diff Urgent
Comprehensive Metabolic Panel Urgent
HCG, Serum Qualitative Screen Urgent
07/17/25 16:37
Acetaminophen [Tylenol] 650 mg PO NOW STA
07/17/25 17:00
Lidocaine [Lidocaine 4% Patch] 1 patch TOPICAL DAILY
Apply Lidocaine patch(s) to:: right lower back
07/17/25 17:06
Urinalysis Reflex To Culture Urgent
Date Specimen was Collected: 07/17/25
Time Specimen was Collected: 16:46
Urine Microscopic Reflex Cult Urgent
Urine Culture Urgent
AL Source: U
Specimen Description:
Date Specimen was Collected: 07/17/25
Time Specimen was Collected: 16:46
07/17/25 18:16
Add On - Microbiology Urgent
Tests Added?: urine culture
Abnormal Lab Results
07/17/25 07/17/25 07/17/25
13:44 14:14 17:06
Hgb 11.6 L g/dL
(12.0-16.0)
MCH 26.1 L pg
(27.0-31.0)
MCHC 31.4 L g/dL
(33.0-37.0)
Absolute Neuts (auto) 7.3 H 10^3/uL
(1.4-6.5)
Lymphocytes % 18.2 L %
(20.5-51.1)
Glucose 121 H mg/dl
(70-99)
Ur Occult Blood Reflex 2+ A
(Negative)
Leukocyte Esterase Rfl 1+ A
(Negative)
Urine RBC 7-10 A /HPF
(0-2)
Urine WBC (Reflex) 16-20 A /HPF
(0-5)
Urine Bacteria (Reflex) Moderate A Moderate A
(Negative) (Negative)
Urine Albumin (Reflex) 1+ A 1+ A
(Neg - Trace) (Neg - Trace)
07/17/25 14:14
07/17/25 14:14
Vital Signs
Initial and Last Documented VS:
Initial Vital Signs
Temp Pulse Resp BP Pulse Ox
97.5 F 92 16 145/79 97
07/17/25 12:21 07/17/25 12:21 07/17/25 12:21 07/17/25 12:21 07/17/25 12:21
Last Documented Vital Signs
Temp Pulse Resp BP Pulse Ox
97.5 F 90 20 168/98 97
07/17/25 12:21 07/17/25 17:13 07/17/25 18:06 07/17/25 17:13 07/17/25 13:46
MDM/Problems Addressed
Differential Diagnosis Includes:
Not limited to: Renal colic, pyelonephritis, cystitis, appendicitis, ovarian cyst, ovarian torsion, muscular strain, sciatica, etc.
MDM/Problems Addressed:
49-year-old female presents with four days of right flank pain radiating into the right lower abdomen. She denies urinary symptoms, vomiting, anorexia, or shortness of breath. Vital signs are stable. On examination, she is well-appearing and in no
acute distress. There is mild, reproducible tenderness in the right flank and right lower abdomen/pelvic region without rebound tenderness, guarding, or rash.
Given the location and nature of symptoms, the differential diagnosis was broad, including ovarian pathology, renal colic, urinary tract infection, or musculoskeletal pain. Laboratory evaluation was unremarkable. CT abdomen and pelvis demonstrated
small bilateral ovarian cysts without evidence of obstructing ureteral calculi or other acute intra-abdominal pathology. The initial urinalysis was somewhat equivocal for infection; however, a repeat sample appeared clean. Urine culture was sent for
confirmation.
Given the overall benign exam, stable vitals, and negative imaging for acute pathology, symptoms are most likely related to ovarian cysts or musculoskeletal strain. There is no evidence of an infectious or surgical process at this time. The patient
remains well-appearing and hemodynamically stable. She is safe for discharge home with [facility] follow-up and supportive care. Strict return precautions discussed, and the patient expressed understanding and agreement with the plan.
Chronic conditions affecting care:
Hypertension
Acute Exacerbation and/or Progression of Chronic Illness:
Acutely hypertensive
*Radiology
Radiology exam reviewed: radiology read reviewed
*Pulse Oximetry
SaO2: 97
Oxygen Mode of Delivery: Room air
Patient hypoxic: no
*EKG
Interpreted by ED Provider?: NA
*Security Director Interpretation
Rate: Security Director- N/A
*Critical Care Note
Total Time (30-74mins, 75-104mins- exclusive of procedures): Not Applicable
ED Attending Note
-
Portions of this chart may have been created with voice recognition software.� Occasional wrong word or��sound alike� substitutions may have occurred due to the inherent limitations of voice recognition software.
Discharge Plan
Departure
Patient Disposition: Home (Routine Discharge)
Date of Disposition: 07/17/25
Time of Disposition: 18:17
Patient with high blood pressure during this ER visit?: Yes
Condition: Good
Discharge Problem:
Flank pain, right side, Right sided abdominal pain
Instructions: Ovarian cyst - ED (DC), Flank pain - ED (DC), BLOOD PRESSURE
Prescriptions:
No Action
lithium carbonate 300 mg Capsule
300 mg PO DAILY
lithium carbonate 300 mg Capsule
600 mg PO HS
lorazepam 1 mg Tablet
1 mg PO TID
quetiapine 200 mg Tablet Extended Release 24 Hr
200 mg PO BID
cyclobenzaprine 10 mg Tablet
10 mg PO HS PRN (Reason: pain)
losartan 25 mg Tablet
25 mg PO DAILY
tranexamic acid 650 mg Tablet
650 mg PO TID
fluticasone propionate 50 mcg/actuation [place],Suspension
1 spray INTRANASAL DAILY
Elicia Back and Body 500-32.5 mg Tablet
1 tab PO PRN PRN (Reason: pain)
amoxicillin
1 tab PO BID
ondansetron 4 mg tablet,disintegrating
4 mg PO Q8H PRN (Reason: nausea and vomiting) Qty: 10 0RF
Referrals:
Mary Ann MD [Family Provider, Internal Medicine] - Follow up in 5-7 days
Activity Restrictions/Additional Instructions:
RETURN TO THE EMERGENCY DEPARTMENT ANY FEVER, CHILLS, WORSENING BACK/ABDOMINAL PAIN, INTRACTABLE NAUSEA/VOMITING, DIFFICULTIES URINATING, WORSENING IN CURRENT SYMPTOMS, OR ANY OTHER CONCERNS
- As discussed�your lab work showed no acute abnormalities. Your urine does not appear infected. Your CT scan did show bilateral ovarian cysts, larger on the right side. This may be contributing to your discomfort.
- Please continue to take Tylenol and/or Motrin as needed for pain. You can apply topical lidocaine patches. It is important stay well-hydrated.
- Follow-up with your [facility] and/your primary care for further/management and to ensure that your symptoms are improving
Monitor your symptoms closely and return to the emergency department with any acute worsening/new symptoms or any signs of infection
Interventions
Interventions:
*Risk Screen - Suicide Last Done: 07/17/25 12:21
*General Assessment Last Done: 07/17/25 12:54
*Neglect/Abuse Screening Last Done: 07/17/25 12:21
*ED- Fall Risk Assessment Last Done: 07/17/25 12:54
*ED COVID-19 Vaccine History Last Done: 07/17/25 12:54
*ED Influenza Vaccine History Last Done: 07/17/25 12:54
*Nursing Disposition Last Done: 07/17/25 18:21
ED-Musculoskeletal Assessment Last Done: 07/17/25 12:53
Discharge Date and Time
Discharge Date/Time: 07/17/25 18:30
Print Language: GUINEAN
[2025-07-17 14:01] LABS: Urine Character Clear (Clear)
[2025-07-17] MEDS: NSS 1000 IV (14:11)
[2025-07-17] MEDS: TORADOL 15 MG IV (14:12)
[2025-07-17 14:25] LABS: Hematocrit 37.0 % (37.0-47.0); Hemoglobin 11.6 g/dL (12.0-16.0); Mean Corp Hgb Conc. 31.4 g/dL (33.0-37.0); Mean Corpuscular Volume 83.1 fL (81.0-99.0); Nucleated Red Blood Cells % 0 %; Platelet Count 320 10^3/uL (130-400); Red Cell Dist. Width 13.3 % (11.5-14.5)
[2025-07-17 14:36] LABS: HCG, Serum Qualitative Screen Negative
[2025-07-17 14:37] LABS: Urine Squamous Cell 16-20 /LPF (Few); Urine Urothelial Cell 0-2 /LPF (FEW)
[2025-07-17 14:39] LABS: Urine White Cell 16-20 /HPF (0-5)
[2025-07-17 14:40] LABS: ALT (SGPT) 22 U/L (0-35); AST (SGOT) 24 U/L (14-36); Albumin 4.3 g/dl (3.5-5.0); Alkaline Phosphatase 77 U/L (38-126); Blood Urea Nitrogen 11 mg/dl (7-17); Calcium 9.1 mg/dl (8.4-10.2); Carbon Dioxide 27 mmol/L (22-30); Chloride 105 mmol/L (98-107); Glucose 121 mg/dl (70-99); Potassium 3.9 mmol/L (3.5-5.1); Sodium 138 mmol/L (135-145); Total Protein 6.8 g/dl (6.3-8.2); eGFR > 60.00
[2025-07-17] MEDS: LIDOCAINE 4% PATCH 1 PATCH TOPICAL (17:00)
[2025-07-17] MEDS: TYLENOL 650 MG PO (17:00)
[2025-07-17 17:13] VITALS: BP 168/98
[2025-07-17 17:47] LABS: Urine Character Clear (Clear)
[2025-07-17 18:07] LABS: Urine Red Blood Cell 0-2 /HPF (0-2); Urine White Cell 0-2 /HPF (0-5)
== END 2025-07-17 18:30 | disposition home or self-care (01) ==
LOC: EMR 12:20
PROVIDERS: Physician Assistant; EMERGENCY PHYSICIAN Student in an Organized Health Care Education/Training Program; FAMILY PHYSICIAN Hospitalist
DX: R10.A1 Flank pain, right side (principal); R10.31 Right lower quadrant pain; N83.202 Unspecified ovarian cyst, left side; N83.201 Unspecified ovarian cyst, right side; I10 Essential (primary) hypertension; Z87.442 Personal history of urinary calculi
CPT/HCPCS: 99284; 96374; 96361; 74177; 80053; 81003; 81015; 84703; 85025; 87077; 87086; 87186; Q9967

== ENCOUNTER → 2025-08-25 10:46 | Outpatient (REF) | payer MEDICARE, OTHER, SELFPAY | LOC: HWRAD 10:46 | PROVIDERS: ATTENDING PHYSICIAN Urology; FAMILY PHYSICIAN Hospitalist | DX: N32.89 Other specified disorders of bladder (principal); N28.89 Other specified disorders of kidney and ureter | CPT/HCPCS: 76775 ==